=== PATIENT | male | born 1990 | race Caucasian/White ===

== ENCOUNTER 2024-07-23 12:58 | Emergency (ER) | payer OTHER ==
[~2024-07-23] VITALS: Ht 175.3 cm; Wt 79.5 kg
[~2024-07-23 12:58] MED LIST: NOCURR
[2024-07-23 13:01] VITALS: TEMP 98.9
[2024-07-23 14:10] LABS: BASOPHILS % (AUTO) 0.5 % (0.0-2.0); EOSINOPHILS % (AUTO) 0.3 % (1.0-6.0); HEMATOCRIT 51.2 % (41-53); HEMOGLOBIN 17.2 g/dL (13.5-17.5); LYMPHOCYTES % (AUTO) 11.9 % (22.0-44.0); MEAN CORPUSCULAR HEMOGLOBIN 31.8 pg (26.0-34.0); MEAN CORPUSCULAR HGB CONC 33.6 G/dL (31.0-37.0); MEAN CORPUSCULAR VOLUME 95 fL (80-100); MONOCYTES # (AUTO) 0.2 K/uL (0.1-1.0); MONOCYTES % (AUTO) 2.7 % (2.0-9.0); NEUTROPHILS # (AUTO) 6.9 K/uL (1.8-7.7); NEUTROPHILS % (AUTO) 84.6 % (40.0-70.0); PLATELET COUNT (AUTO) 201 K/uL (150-450); WHITE BLOOD COUNT (AUTO) 8.1 K/uL (4.5-11.0)
[2024-07-23 14:15] LABS: COVID AG,FIA SOURCE NASAL SWAB
[2024-07-23 14:22] LABS: ANION GAP 5 mmol/L (8-16); CALCIUM, TOTAL 9.3 mg/dL (8.8-10.5); CARBON DIOXIDE 29 mmol/L (22-29); CHLORIDE 104 mmol/L (98-107); CREATININE 0.99 mg/dL (0.60-1.30); GLOMERULAR FILTR. RATE CALC > 60 mL/min (>60); GLUCOSE,RANDOM 119 mg/dL (70-110); POTASSIUM 4.7 mmol/L (3.5-5.1); SODIUM SERUM 138 mmol/L (136-145); UREA NITROGEN, BLOOD 11 mg/dL (7-18)
[2024-07-23 14:49] LABS: INFLUENZA TYPE A NEGATIVE FOR TYPE A (NEGATIVE); INFLUENZA TYPE B NEGATIVE FOR TYPE B (NEGATIVE); SARS-COV2 (COVID) ANTIGEN,FIA Negative (Negative)
[2024-07-23] MEDS: SODIUM CHLORIDE 0.9% 1,000 ML IV ONE (15:56)
[2024-07-23] MEDS: MECLIZINE HCL 25 MG TABLET PO ONE (15:56)
[2024-07-23] MEDS: METOCLOPRAMIDE HCL 5 MG/ML 2 ML VIAL IVP ONE (17:26)
[2024-07-23] MEDS ORDERED: AMOX-457 PO (19:03)
[2024-07-23] MEDS ORDERED: FLUT16SP NASAL (19:03)
[2024-07-23] MEDS ORDERED: MECL-302 PO (19:04)
[2024-07-23] MEDS: LORazepam 2 MG/ML VIAL IVP ONE (19:14)
[2024-07-23 19:36] VITALS: BP 142/79; PULSE 84; RESP 20; O2SAT 99
== END 2024-07-23 19:44 | disposition home or self-care (01) ==
LOC: EMS 14:42
DX: H65.91 Unspecified nonsuppurative otitis media, right ear (principal); H81.10 Benign paroxysmal vertigo, unspecified ear; R51.9 Headache, unspecified; Z20.822 Contact with and (suspected) exposure to COVID-19
CPT/HCPCS: 99285; 96374; 70450; 96361; 96375; 87426; 80048; 85025; 87804; 36415; J2060; J2765; J7030